=== PATIENT | female | born 1985 | race Caucasian/White ===

== ENCOUNTER 2018-10-25 16:09 | Emergency (ER) | payer MEDICAID ==
[~2018-10-25] VITALS: Ht 177.8 cm; Wt 88.5 kg
[~2018-10-25 16:09] MED LIST: ACHD5005 PO; ALBU8.5HRX INH; CLON2TAB3 PO; DIPH1TAB PO; DIPH1TAB25 PO; DOCU100C37 PO; FERR325T18 PO; IBUP-1773 PO; LEVO500T69 PO; NAPR-243 PO; ONDA-42 SL; PARO20TA5 PO; PRX20T PO; [UNRECOGNIZED DRUG - OTHER]
--- NOTE | 2018-10-25 16:33 | ED EENT ---
History of Present Illness General Chief Complaint: Dental Problems/Pain Stated Complaint: DENTAL PAIN Nursing Triage Note: Pt presents with C/O left sided dental pain. Pt states she has a tooth that has been "chipping for a year" and been avoiding it. Pt describes pain as "throbbing" and rates 6/10 at this time. Pt states taking tylenol and ibuprofen for pain but is unrelieved with meds. Source: patient, family Exam Limitations: no limitations History of Present Illness Date Seen by Provider: Oct 25, 2018 Time Seen by Provider: 16:28 Initial Comments This 33-year-old white female presents with dental pain. The patient has a wisdom tooth that has been creating increasing discomfort. Patient denies remarkable soft tissue swelling, difficulty swallowing, stiff neck, headache, or photophobia. Patient has had multiple dental caries in the past. She does well with penicillin. Patient after discussion would like to be referred to the dentist at [facility]. Allergies and Home Medications Allergies Coded Allergies: fluoxetine (Unverified Allergy, Severe, ANAPHYLAXIS, 08/16/13) Home Medications Docusate Sodium 100 Mg Capsule, 100 MG PO BID Prescribed by: LAKHWINDER CARCAMO on 12/20/15827 Ferrous Sulfate 325 Mg Tablet, 325 MG PO DAILY Prescribed by: LAKHWINDER CARCAMO on 12/20/15827 Ibuprofen 600 Mg Tablet, 600 MG PO Q6H Prescribed by: LAKHWINDER CARCAMO on 12/20/15827 Paroxetine HCl 20 Mg Tablet, 20 MG PO DAILY half a tab daily for 7 days then increase to full tab daily Prescribed by: LAKHWINDER CARCAMO on 12/20/15827 Patient Home Medication List Home Medication List Reviewed: Yes Review of Systems Review of Systems Constitutional: No chills, No fever Eyes: No Symptoms Reported Ears: No Symptoms Reported Nose: no symptoms reported Mouth: no symptoms reported, other (dental pain from impacted wisdom tooth left maxilla.) Throat: no symptoms reported Respiratory: no symptoms reported Cardiovascular: no symptoms reported Musculoskeletal: no symptoms reported Skin: no symptoms reported Neurological: No Symptoms Reported Hematologic/Lymphatic: No Symptoms Reported Immunological/Allergic: no symptoms reported Past Mzwnjqv-Wyhbrk-Awgcfe Hx Past Med/Social Hx: Reviewed Nursing Past Med/Soc Hx Patient Social History Alcohol Use: Denies Use Recreational Drug Use: No Smoking Status: Current Everyday Smoker Type Used: Cigarettes Former Smoker, Quit: Dec 17, 2014 Recent Foreign Travel: No Contact w/Someone Who Travel: No Recent Infectious Disease Expo: No Recent Hopitalizations: No Physical Abuse: No Sexual Abuse: No Mistreated: No Fear: No Immunizations Up To Date Tetanus Booster (TDap): Less than 5yrs PED Vaccines UTD: No Date of Pneumonia Vaccine: Jan 06, 2013 Date of Influenza Vaccine: Nov 17, 2015 Seasonal Allergies Seasonal Allergies: No Past Medical History Surgeries: Yes (gastric sleeve April 2017) Respiratory: Yes Asthma Cardiac: Yes (2008) Neurological: No Reproductive Disorders: No Female Reproductive Disorders: Denies Sexually Transmitted Disease: No HIV/AIDS: No Gastrointestinal: No Musculoskeletal: Yes Arthritis Endocrine: No Cancer: No Psychosocial: Yes Anxiety Integumentary: No Blood Disorders: No Adverse Reaction/Blood Tranf: No Family Medical History FH: breast cancer maternal aunt Family history: Cardiovascular disease 03 FATHER (ARTIFICIAL VALVE) Hypertension grandparent Myocardial infarction 03 FATHER Stroke 03 FATHER No Pertinent Family Hx Physical Exam Vital Signs Vital Signs - First Documented 10/25/18 16:10 Temp 98.8 Pulse 70 Resp 20 B/P (MAP) 117/73 (88) O2 Delivery Room Air Height, Weight, BMI Height: 5'10.00" Weight: 195lbs. 2.0oz. 88.989365iz; 48.7 BMI Method:Stated General Appearance: WD/WN, no apparent distress Eyes: bilateral eye normal inspection Ears: bilateral ear auricle normal Nose: normal inspection Mouth/Throat: No pharynx tenderness, No tonsillar exudate; other (dental caries) Neck: non-tender, full range of motion Cardiovascular: normal peripheral pulses, regular rate, rhythm Respiratory: chest non-tender, lungs clear, normal breath sounds, no respiratory distress Gastrointestinal: normal bowel sounds, non tender, soft Neurologic/Psychiatric: no motor/sensory deficits, alert, normal mood/affect Skin: normal color, warm/dry Progress/Results/Core Measures Results/Orders Vital Signs/I&O 10/25/18 16:10 Temp 98.8 Pulse 70 Resp 20 B/P (MAP) 117/73 (88) O2 Delivery Room Air Blood Pressure Mean: 88 Progress Progress Note : Time: 16:31 Progress Note Discussed findings with patient. Place the patient on Ultram for pain. I gave the patient prescription of Pen-Vee K for her dental caries. I asked that she follow up with the dentist at [facility]. She was invited to return the emergency Department for any problems questions Departure Impression Primary Impression: Dental caries Disposition: HOME, SELF-CARE Condition: Improved Departure-Patient Inst. Decision time for Depature: 16:32 Referrals: DANUTA HARRINGTON DO (PCP/Family) Primary Care Physician Patient Instructions: Dental Pain Add. Discharge Instructions: Ultram and penicillin as prescribed. Follow-up here dentist of choice tomorrow. Return if any problems or questions. All discharge instructions reviewed with patient and/or family. Voiced understanding. Scripts Penicillin V Potassium (Penicillin V Potassium) 500 Mg Tablet 500 MG PO QID for 10 Days, TAB Prov: CASSANDRA KURTZ MD 10/25/18 Tramadol HCl (Ultram) 50 Mg Tablet 100 MG PO Q4H PRN for PAIN-MODERATE, #20 TAB Prov: CASSANDRA KURTZ MD 10/25/18 CASSANDRA KURTZ MD Oct 25, 2018 16:33
[2018-10-25] MEDS ORDERED: PENI500T PO (16:34)
[2018-10-25] MEDS ORDERED: TRAM-42 PO (16:34)
[2018-10-25 16:36] VITALS: BP 117/73
== END 2018-10-25 16:37 | disposition home or self-care (01) ==
LOC: EDUNIT# 16:09 → ER 16:10
DX: K02.9 Dental caries, unspecified (principal); J45.909 Unspecified asthma, uncomplicated; F41.9 Anxiety disorder, unspecified; F17.210 Nicotine dependence, cigarettes, uncomplicated; Z88.8 Allergy status to other drugs, medicaments and biological substances; Z80.3 Family history of malignant neoplasm of breast; Z82.49 Family history of ischemic heart disease and other diseases of the circulatory system
CPT/HCPCS: 99282

== ENCOUNTER 2019-12-01 00:13 | Emergency (ER) | payer MEDICAID ==
[~2019-12-01] VITALS: Ht 177 cm; Wt 80.0 kg
[~2019-12-01 00:13] MED LIST changes: +PENI500T PO; +TRAM-42 PO
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
[2019-12-01] MEDS ORDERED: LACTATED RINGERS 1,000 ML IV ONE (00:28)
[2019-12-01] MEDS ORDERED: TETANUS,DIPTH,PERTUSS P/F (BOOSTRIX) 0.5 ML VIAL IM ONE (00:30)
[2019-12-01 01:27] LABS: BILIRUBIN,URINE NEGATIVE (NEGATIVE); CLARITY,URINE CLEAR; COLOR,URINE YELLOW; GLUCOSE, URINE (UA) NEGATIVE (NEGATIVE); KETONES,URINE NEGATIVE (NEGATIVE); LEUKOCYTE ESTERASE ,URINE NEGATIVE (NEGATIVE); NITRITE,URINE NEGATIVE (NEGATIVE); PROTEIN,URINE TRACE (NEGATIVE)
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
[2019-12-01] MEDS ORDERED: OLANZapine 5 MG ODT (ZyPREXA ZYDIS) PO ONE (01:30)
--- NOTE | 2019-12-01 01:30 | NUR ---
Pt is intermittently yelling out and crying; Dr. Francois aware and order recieved.
[2019-12-01 01:40] LABS: ALANINE AMINOTRANSFERASE 15 U/L (0-55); ALBUMIN 4.6 GM/DL (3.2-4.5); ALKALINE PHOSPHATASE 57 U/L (40-136); BILIRUBIN,TOTAL 0.4 MG/DL (0.1-1.0); BUN/CREATININE RATIO 10; CALCIUM 9.1 MG/DL (8.5-10.1); CARBON DIOXIDE 20 MMOL/L (21-32); CHLORIDE 107 MMOL/L (98-107); GFR ESTIMATED > 60; GLUCOSE 101 MG/DL (70-105); POTASSIUM 3.7 MMOL/L (3.6-5.0); SODIUM 143 MMOL/L (135-145); TOTAL PROTEIN 7.9 GM/DL (6.4-8.2)
[2019-12-01 02:04] LABS: BASOPHILS # (AUTO) 0.1 10^3/uL (0.0-0.1); BASOPHILS % (AUTO) 0 % (0-10); EOSINOPHILS # (AUTO) 0.2 10^3/uL (0.0-0.3); EOSINOPHILS % (AUTO) 2 % (0-10); HEMATOCRIT 46 % (35-52); HEMOGLOBIN 14.8 g/dL (11.5-16.0); LYMPHOCYTES # (AUTO) 2.2 10^3/uL (1.0-4.0); LYMPHOCYTES % (AUTO) 18 % (12-44); MEAN CORPUSCULAR HEMOGLOBIN 27 pg (25-34); MEAN CORPUSCULAR HGB CONC 32 g/dL (32-36); MEAN CORPUSCULAR VOLUME 84 fL (80-99); MEAN PLATELET VOLUME 11.3 fL (9.0-12.2); MONOCYTES # (AUTO) 0.5 10^3/uL (0.0-1.0); MONOCYTES % (AUTO) 4 % (0-12); NEUTROPHILS # (AUTO) 9.7 10^3/uL (1.8-7.8); NEUTROPHILS % (AUTO) 77 % (42-75); PLATELET COUNT 268 10^3/uL (130-400); WHITE BLOOD COUNT 12.7 10^3/uL (4.3-11.0)
[2019-12-01 02:19] LABS: AMORPHOUS SEDIMENT,UR FEW AMOR URATES /LPF; BACTERIA,URINE NEGATIVE /HPF
--- NOTE | 2019-12-01 02:20 | NUR ---
Pt to CT
[2019-12-01 02:22] LABS: AMPHETAMINE SCREEN, URINE NEGATIVE (NEGATIVE); BARBITURATE SCREEN URINE NEGATIVE (NEGATIVE); BENZODIAZEPINES SCREEN URINE NEGATIVE (NEGATIVE); CANNABINOID SCREEN, URINE NEGATIVE (NEGATIVE); COCAINE SCREEN URINE NEGATIVE (NEGATIVE); METHADONE STAT NEGATIVE (NEGATIVE); METHAMPHETAMINE SCREEN URINE S NEGATIVE (NEGATIVE); OPIATE SCREEN URINE NEGATIVE (NEGATIVE); OXYCODONE STAT NEGATIVE (NEGATIVE); PROPOXYPHENE STAT NEGATIVE (NEGATIVE); TRICYCLIC ANTIDEPRESSANTS SCRE NEGATIVE (NEGATIVE)
[2019-12-01] MEDS ORDERED: AUGMENTIN 875 MG TAB (AMOXICILLIN/CLAVULANATE) PO STA (02:33)
--- NOTE | 2019-12-01 03:00 | NUR ---
Wound on right thigh cleansed and ice haylie provided to left eye.
--- NOTE | 2019-12-01 04:21 | NUR ---
Spoke with the [facility] regarding this patient; they spoke with the patient and they will call us back regarding her intake.
[2019-12-01] MEDS ORDERED: AMOX-358 PO (04:29)
--- NOTE | 2019-12-01 04:44 | NUR ---
Pt d/c education provided; pt provided a cab voucher for transportation to the [facility] where she has been accepted.
[2019-12-01 04:45] VITALS: BP 106/71
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
== END 2019-12-01 04:49 | disposition home or self-care (01) ==
LOC: EDUNIT# 00:13 → ER 00:14
DX: S09.90XA Unspecified injury of head, initial encounter (principal); F10.10 Alcohol abuse, uncomplicated; F41.9 Anxiety disorder, unspecified; F17.210 Nicotine dependence, cigarettes, uncomplicated; Z88.8 Allergy status to other drugs, medicaments and biological substances; Z23 Encounter for immunization; Z82.49 Family history of ischemic heart disease and other diseases of the circulatory system; Z80.3 Family history of malignant neoplasm of breast; W50.3XXA Accidental bite by another person, initial encounter
CPT/HCPCS: 70450; 80053; 80306; 81000; 84703 ×2; 85025; G0480; 36415; 80320; 90715